=== PATIENT | male | born 1950 | race Caucasian/White ===

== ENCOUNTER → 2016-12-22 | Day surgery (SDC) | payer MEDICARE ==
[~2016-12-22] MED LIST: CYCL10TA2 PO; IV RINGERS,LACTATED 1000ML 1,000 ML IV SCH; LIDOCAINE 2% PF Vial for OR 5 ML VIAL. ONE; LISI-334 PO; LOVA20TA2 PO; PROPOFOL 40 ML IV ONE
[2016-12-22 13:01] VITALS: BP 121/67
--- NOTE | 2016-12-22 13:36 | OP ---
DATE OF SURGERY: 12/22/2016 PREOPERATIVE DIAGNOSIS: Screening for colon cancer. POSTOPERATIVE DIAGNOSES: 1. Colonic polyp at 30 cm. 2. Pedunculated polyp at 30 cm. PROCEDURE: Colonoscopy with snare polypectomy, biopsy polypectomy and tattoo of the area. INDICATIONS: The patient is a 66-year-old gentleman who has never had a colonoscopy. Denies any colon problems at this time. Procedure of colonoscopy was explained to the patient in detail. Risks, benefits were also discussed including bleeding and/or perforation of the GI tract. Alternatives of this procedure were also discussed with the patient who seemed to understand. DESCRIPTION OF PROCEDURE: The patient was taken to the GI lab, placed in the left lateral decubitus position. IV sedation was initiated by anesthesia. Once the patient was properly sedated, digital rectal exam was performed, showed no mass or obstruction in the rectum. At this point, Olympus colonoscope was passed through the anus into the rectum, passed cephalad to the sigmoid, descending, transverse, ascending colon to cecum. Cecum was well visualized, which appeared to be normal. Scope was then retracted full length of the colon, taking great care to look at all mucosal surfaces. The ascending, transverse, descending colon, sigmoid colon at 30 cm was normal. At 30 cm, there was a small polyp, which was removed ____ polypectomy. Scope was then retracted to just another 0.5 cm, there was a large pedunculated polyp, probably 1 cm and this was removed with hot snare. There appeared to be no bleeding. At this point, the area around the pedunculated polyp was injected for tattooing. Scope was further retracted into the rectum, which was normal. Scope was retroflexed ____, which was normal. Scope was anteflexed, removed from the patient without any difficulties. The patient tolerated procedure well and was taken to recovery in stable condition. ASSESSMENT: 1. Colonic polyp at 30 mm. 2. Pedunculated polyp at 30 cm. RECOMMENDATIONS: Follow up with Dr. Robertson in 7-10 days to review colonoscopy results and pathology reports at that time. His followup colonoscopy will depend on pathology reports from the SANDIP ROBERTSON MD DR: RACHID/galina JOB#: [id number] / [id number] SUDHAKAR Mayfield MD
--- NOTE | 2016-12-27 11:22 | PATHOLOGY ---
PATHOLOGY REPORT * * * * * * * * FINAL DIAGNOSIS: A. Colon biopsies, polyp at 30 cm #1: - Tubular adenoma. B. Colon biopsies, polyp at 30 cm #2: - Tubular adenoma. COMMENT: There is no high-grade dysplasia or evidence of malignancy. (KASSIDYM:; d/t: 12/27/16) REPORT ELECTRONICALLY SIGNED BY: Genaro Robertson M.D. DATE/TIME: 12/27/2016 11:21 * * * * * * * * GROSS PATHOLOGY: A. Received in formalin labeled "Cammie Daniels, polyp 30 cm-1," are two segments of syed soft tissue measuring 0.6 x 0.4 x 0.1 cm in aggregate dimensions and ranging from 0.5 to 0.6 cm in maximum dimension. The specimen is submitted entirely in cassette A1. B. The specimen is received in formalin labeled "Cammie Daniels, polyp 30 cm-2". Received are two polypoid segments of light syed to light brown soft tissue measuring 1.3 x 1.0 x 0.6 and 1.7 x 1.3 x 1.0 cm in greatest dimensions. The apparent surgical margins are inked. The specimen is submitted entirely in cassettes B1 through B3. (CAA; 12/26/2016) INITIAL CPT CODE(S): A; 34991 B; 68446 Professional services performed by [facility] [place] [address] Technical services performed by [facility] at [address] [place] [address], [facility] [address] [address]. SPECIMEN(S) RECEIVED: A.Colon polyp @ 30cm B.Colon polyp @ 30cm CLINICAL HISTORY: + hemoccult PATIENT: CAMMIE DANIELS /AGE: 1207/29/1950 (Age: 66) PATIENT #: [id number] ALT CASE #: SPECIMEN COLLECTION DATE: 12/22/2016 SPECIMEN RECEIVED DATE: 12/22/2016 [facility] - [address] [place] [address] - PHONE: [phone] * * * END OF REPORT * * *
== END | disposition home or self-care (01) ==
LOC: ENDOS 11:26
PROVIDERS: ATTEND Surgery
DX: Z12.11 Encounter for screening for malignant neoplasm of colon (principal); K63.5 Polyp of colon; E78.00 Pure hypercholesterolemia, unspecified; I10 Essential (primary) hypertension; M19.90 Unspecified osteoarthritis, unspecified site; Z87.39 Personal history of other diseases of the musculoskeletal system and connective tissue
CPT/HCPCS: 45381; 45385; J2704

== ENCOUNTER → 2021-08-19 | Day surgery (SDC) | payer MEDICARE ==
[~2021-08-19] VITALS: Ht 185.4 cm; Wt 101.0 kg
[~2021-08-19] MED LIST changes: +CYCL10TA19 PO; -CYCL10TA2 PO; +FESO8TAB PO; -LIDOCAINE 2% PF Vial for OR 5 ML VIAL. ONE; -LISI-334 PO; +LISI20TA18 PO; +PROPOFOL 10 MG/ML (20ML) VIAL. IV ONE; -PROPOFOL 40 ML IV ONE; +TAMS0.4C97 PO
[2021-08-19 11:52] VITALS: BP 160/88
[2021-08-19 12:43] VITALS: BP 154/85
--- NOTE | 2021-08-23 09:12 | PATHOLOGY ---
[facility] Accession Number: [id number] . 01 Material submitted: . rectum - RECTAL BIOPSY AT 10 CM . 01 Clinical history: . BLOOD IN STOOL COLONOSCOPY . 02 Diagnosis: Rectal biopsy at 10 cm: - Reactive hyperplastic changes of superficial rectal mucosa with edema, vascular ectasia, and mild subacute and chronic inflammation. (JP:mm; 08/22/2021) [facility] 08/23/2021 0843 Local . 02 Comment: There are no adenomatous changes or evidence of malignancy. . ([facility]:mm; 08/22/2021) . 02 Electronically signed: . Genaro Robertson MD, Pathologist NPI- [id number] . 01 Gross description: . The specimen is received in formalin, labeled "Navneet Craig, rectal BX at 10 cm". Received are 3 segments of pale syed tissue ranging in size from 0.2-0.5 cm in maximum dimensions. The specimen is entirely submitted in cassette A1. ([facility]; 08/19/2021) NRI/NRI 08/19/2021 1743 Local . 02 Pathologist provided ICD-10: K62.89 . 02 CPT . 567427 Specimen Comment: A courtesy copy of this report has been sent to [phone], [phone] Specimen Comment: [id number] Specimen Comment: Report sent to / DR JULIO Specimen Comment: A duplicate report has been generated due to demographic updates. Performed at: [address] [facility] [address], [place] [id number] MD Brandon Palafox MD Phone: [phone] Performed at: 02 [facility] [address] [place], [place] [id number] MD Genaro Robertson MD Phone: [phone]
--- NOTE | 2021-08-26 08:59 | PDOC1 ---
History and Physical Date of Admission Date of Admission DATE: 08/19/21 TIME: 08:56 Identification/Chief Complaint Chief Complaint Blood per rectum Source Source: Patient History of Present Illness History of Present Illness 71-year-old male who is having some bleeding per rectum recently had radiation therapy for prostate cancer Past Medical History Cardiovascular: No pertinent hx Pulmonary: No pertinent hx GI: No pertinent hx Heme/Onc: Cancer (Prostate) Hepatobiliary: No pertinent hx Psych: No pertinent hx Rheumatologic: No pertinent hx Infectious disease: No pertinent hx ENT: No pertinent hx Renal/: No pertinent hx Endocrine: No pertinent hx Dermatology: No pertinent hx Past Surgical History Past Surgical History: Other (Prostate surgery) Family History Family History: No Significant Social History Smoke: No ALCOHOL: none Drugs: None Current Medications Current Medications Current Medications Ringer's Solution 1,000 ml @ 75 mls/hr [id number] IV Last administered on 08/19/21at 11:30; Start 08/19/21 at 12:15; Stop 08/20/21 at 12:14; Status DC Propofol (Diprivan) 200 mg STK-MED ONCE IV ; Start 08/19/21 at 11:43; Stop 08/23/21 at 13:06; Status DC Propofol (Diprivan) 200 mg STK-MED ONCE IV ; Start 08/19/21 at 12:00; Stop 08/23/21 at 13:06; Status DC Active Scripts Active Reported Toviaz (Fesoterodine Fumarate) 8 Mg Tab.er.24h 1 Tab PO DAILY Flomax (Tamsulosin Hcl) 0.4 Mg Cap.er.24h 1 Cap PO DAILY Lovastatin 20 Mg Tablet 20 Mg PO HS Lisinopril 20 Mg Tablet 20 Mg PO DAILY Allergies Allergies: Coded Allergies: No Known Drug Allergies (Unverified , 08/19/21) ROS Gastrointestinal: Yes Hematochezia Physical Exam General: Alert, Oriented X3, Cooperative, No acute distress HEENT: Atraumatic, PERRLA, EOMI Lungs: Clear to auscultation, Normal air movement Heart: RRR, no murmurs Abdomen: Normal bowel sounds, Soft, No tenderness Extremities: No edema Skin: No significant lesion Neuro: Normal speech Psych/Mental Status: Mental status NL Vitals Vitals Vital Signs Date Time Temp Pulse Resp B/P (MAP) Pulse Ox O2 Delivery O2 Flow Rate FiO2 08/19/21 12:43 97.0 65 18 154/85 99 Room Air 97.0 08/19/21 12:28 2 VTE Prophylaxis Ordered VTE Prophylaxis Devices: No VTE Pharmacological Prophylaxi: No Assessment/Plan Assessment/Plan Patient having some blood per rectum plan for colonoscopy Justifications for Admission Other Justification SANDIP ROBERTSON MD Aug 26, 2021 08:59
== END | disposition home or self-care (01) ==
LOC: ENDOS 11:29
PROVIDERS: ATTEND Surgery
DX: K62.5 Hemorrhage of anus and rectum (principal); K62.89 Other specified diseases of anus and rectum; I10 Essential (primary) hypertension; E78.00 Pure hypercholesterolemia, unspecified; M19.90 Unspecified osteoarthritis, unspecified site; Z79.899 Other long term (current) drug therapy; Z98.890 Other specified postprocedural states; Z86.010 Personal history of colon polyps
CPT/HCPCS: 45380; 88305; J2704